=== PATIENT | male | born 1995 | race African-American/Black ===

== ENCOUNTER 2020-05-27 06:04 | Emergency (ER) | payer MEDICAID, OTHER, SELFPAY ==
[~2020-05-27] VITALS: Ht 182.9 cm; Wt 122.7 kg
[~2020-05-27 06:04] MED LIST: ALBU17IN2 IN; CLAR5CHW OR; ONDA-1 OR; VITAMIN D 2 PO; ZOFRAN ODT PO; vitamin
[2020-05-27] MEDS ORDERED: SERT-138 PO (06:28)
[2020-05-27] MEDS ORDERED: FAMOTIDINE INJ 20MG/2ML VIAL (S0028 PER 1) IVP ONE (06:45)
[2020-05-27] MEDS ORDERED: diphenhydrAMINE 50MG/ML VIAL (J1200) IV ONE (06:45)
[2020-05-27] MEDS ORDERED: methylPREDNISolone 125MG 2ML VIAL IV ONE (06:45)
[2020-05-27] MEDS ORDERED: NS 1,000 ML IV ONE (06:45)
[2020-05-27 07:22] LABS: BASO % 0.2 % (0.0-1.0); EOS # 0.1 10^3/uL (0.0-0.5); EOS % 2.4 % (0.0-3.0); HEMOGLOBIN 15.5 g/dl (13.5-17.5); LYMPH # 1.5 10^3/uL (1.5-5.0); LYMPH % 33.2 % (24.0-44.0); MEAN CORPUSCULAR HEMOGLOBIN 27.8 pg (27.0-33.0); MEAN CORPUSCULAR VOLUME 84.2 fl (80.0-96.0); MONO # 0.3 10^3/uL (0.0-0.8); MONO % 7.4 % (0.0-5.0); NEUTROPHILS # 2.6 10^3/uL (1.5-8.5); NEUTROPHILS % 56.8 % (36.0-66.0); PLATELET COUNT, AUTOMATED 259 10^3/uL (150-450); RED BLOOD COUNT 5.58 10^6/uL (4.30-6.10); WHITE BLOOD COUNT 4.6 10^3/uL (4.0-10.0)
[2020-05-27 07:56] LABS: ALBUMIN 3.6 GM/DL (3.2-5.2); ALT/SGPT 45 U/L (12-78); BILIRUBIN,DIRECT 0.1 MG/DL (0.0-0.2); BILIRUBIN,TOTAL 0.8 MG/DL (0.2-1.0); BLOOD UREA NITROGEN 13 MG/DL (7-18); C REACTIVE PROTEIN QUANTITATIV 0.34 MG/DL (0.00-0.30); CALCIUM LEVEL 8.4 MG/DL (8.5-10.1); CARBON DIOXIDE LEVEL 27 MEQ/L (21-32); CHLORIDE LEVEL 108 MEQ/L (98-107); COMPLEMENT C4 32 MG/DL (10-40); CREATININE FOR GFR 1.05 MG/DL (0.70-1.30); GLOMERULAR FILTRATION RATE > 60.0 (>60); GLUCOSE, FASTING 90 MG/DL (70-100); POTASSIUM SERUM 3.9 MEQ/L (3.5-5.1); SODIUM LEVEL 140 MEQ/L (136-145); TOTAL PROTEIN 6.6 GM/DL (6.4-8.2)
[2020-05-27 08:04] LABS: ERYTHROCYTE SEDIMENTATION RATE 1 mm/hr (0-15)
[2020-05-27] MEDS ORDERED: PRED20TA PO (09:05)
[2020-05-27 09:15] VITALS: BP 123/66
== END 2020-05-27 09:21 | disposition home or self-care (01) ==
LOC: M ED 06:04
DX: R22.0 Localized swelling, mass and lump, head (principal); I10 Essential (primary) hypertension; J45.909 Unspecified asthma, uncomplicated; R51.9 Headache, unspecified; K50.919 Crohn's disease, unspecified, with unspecified complications; E78.5 Hyperlipidemia, unspecified; Z86.73 Personal history of transient ischemic attack (TIA), and cerebral infarction without residual deficits; F17.200 Nicotine dependence, unspecified, uncomplicated; Z79.899 Other long term (current) drug therapy; Z88.6 Allergy status to analgesic agent
CPT/HCPCS: 80048; 80076; 83519; 85025; 85652; 86140; 86160; 93041; 94760; 96361; 96374; 96375; 99285; J1200; J2930

== ENCOUNTER → 2020-06-11 | Outpatient (CLI) | payer MEDICAID ==
[~2020-06-11] MED LIST changes: +PRED20TA PO; +SERT-138 PO
== END ==
LOC: M OUTALCOH 09:09
PROVIDERS: ATTEND Psychiatry & Neurology Psychiatry
DX: Z03.89 Encounter for observation for other suspected diseases and conditions ruled out (principal)

== ENCOUNTER 2020-06-16 15:19 | Outpatient (RCR) | payer MEDICAID | END 2020-06-21 | LOC: M OUTALCOH 15:19 | PROVIDERS: ATTEND Psychiatry & Neurology Psychiatry | DX: Z03.89 Encounter for observation for other suspected diseases and conditions ruled out (principal); Z72.0 Tobacco use ==